=== PATIENT | female | born 1950 | race Caucasian/White ===

== ENCOUNTER 2022-09-30 14:35 | Outpatient (CLI) | payer MEDICARE, OTHER ==
--- NOTE | 2022-09-30 16:22 | CT Report ---
PROCEDURE: HEAD WO INDICATIONS: OTH SYMPTOMS AND SIGNS W COGNITIVE FUNCTIONS AND A TECHNIQUE: Noncontrast 4.5 mm thick angled axial sections acquired from the foramen magnum to the vertex. For r adiation dose reduction, the following was used: automated exposure control, adjustment of mA and/or kV according to patient size. COMPARISON: None. FINDINGS: Image quality: Excellent. CSF spaces: Basal cisterns are patent. No extra-axial fluid collections. Ventricles are normal in size and shape. Brain: Mild global cerebral volume loss and chronic microvascular ischemic change. No acute intracran ial hemorrhage. No evidence of infarct or edema. Skull and face: Calvarium and visualized facial bones are intact, without suspicious lesions. Sinuses: Visualized sinuses and mastoids are clear. IMPRESSION: Mild global cerebral volume loss and mild chronic microvascular ischemic change. Reviewed by: Willi Tran MD on 09/30/2022 4:21 PM PST Approved by: Willi Tran MD on 09/30/2022 4:21 PM PST Station ID: [id number]
--- NOTE | 2022-09-30 16:36 | XRAY Report ---
PROCEDURE: Finger(s) RT INDICATIONS: 3RD DIGIT RIGHT FINGER TECHNIQUE: AP hand, two views of the right 3rd finger(s) acquired. COMPARISON: None FINDINGS: Medial subluxation and angulation of the right 3rd proximal interphalangeal joint without definite ev idence of fracture. No associated soft tissue swelling. No suspicious bone lesion. IMPRESSION: Medial subluxation and angulation of the right 3rd proximal interphalangeal joint without associated fracture identified. Findings suggest ligamentous injury. Consider MRI. Reviewed by: Willi Tran MD on 09/30/2022 4:35 PM PST Approved by: Willi Tran MD on 09/30/2022 4:[address] [facility] Station ID: [id number]
== END 2022-09-30 14:36 | disposition home or self-care (01) ==
LOC: DI 14:35
PROVIDERS: ATTEND Internal Medicine
DX: R41.89 Other symptoms and signs involving cognitive functions and awareness (principal); I67.82 Cerebral ischemia; S63.22 Subluxation of unspecified interphalangeal joint of finger

== ENCOUNTER 2023-04-08 08:40 | Outpatient (CLI) | payer MEDICARE, OTHER ==
--- NOTE | 2023-04-08 09:22 | Sleep Patient Instructions ---
Sleep Center Visit Summary - Patient Visit Information Reason for Visit: Initial consult for evaluation of sleep disordered breathing and other sleep issues. - Patient Instructions Instructions Attached: Sleep Study, Sleep Clinic Visit Additional Instructions: You will be completing a sleep study, either an in-lab polysomnography (PSG) or home sleep study (HST). You will follow-up in the sleep care office after the sleep study is completed to hear the results and talk about therapy, if needed. You will be called by our office staff to schedule this appointment, but you may contact us with any questions. - Clinic Information Contact: [facility] [address] [place] [address] [email or web address] T: [phone]
--- NOTE | 2023-04-08 09:30 | SLEEP CARE CONSULTATION ---
Information from patient questionnaire entered by Letty Onofre. I have reviewed and concur with the information entered by Letty Onofre. This document represents the service I personally performed and the decisions made by me, Dariela Heath ARNP. History of Present Illness Service Date and Time: 04/08/2023 0840 Reason for Visit: New patient Accompanied by: Spouse (Surendra) Chief Complaint: reports: Unrefreshed sleep, Snoring, Observed pauses in breathing Date of Onset: 2-3 years, lack of good sleep Usual bedtime: 8-9 Time it takes to fall asleep: 10-15MIN Snores at night: Yes Observed to quit breathing while asleep: Yes Sleeps alone due to snoring: No Number of times waking at night: 1-2 Reasons for waking at night: reports: Bathroom. denies: Choking, Snoring, Gasping for air Toss, Turn, or Twitch while sleeping: No Recalls having dreams: Yes (not every night) Usually gets out of bed at: 6-7AM Feels refreshed in the morning: Yes Morning headache: Yes (2-3 times a week; gone as soon as starts moving around) Sleepy or fatigued during the day: Yes Ever fallen asleep while driving: No Takes day naps: Yes (daily after lunch for 1 hour) Dreams during day naps: No Prior sleep studies: No Additional HPI information: I had the pleasure of seeing ASHWIN NAILS today regarding the possibility of her having a sleep disorder. Her current complaints are observed pauses in breathing, snoring and unrefreshed sleep. She is accompanied by her . She was referred because of memory issues that they think might be related to poor sleep. Her states she snores and has had times when she stops breathing. She also has restless legs at night. She has been on medication for RLS for a long time. Currently she is taking just Mirapex. The other two medications, gabapentin and amitriptyline, are on hold right now. She states she can fall asleep easily within few minutes and sleep through the night with just 1-2 times up for the bathroom. She usually feels rested in the morning. She average 9.5 hours of sleep nightly. Her states she snores when on her side but not when sleeping on her stomach. She denies waking up gasping for air, choking or snoring. She did not think she naps but her interjected that they both usually take a nap for an hour after lunch most days. - Parasomnia Symptoms Ever been unable to move upon waking from sleep: No Walks in sleep: No Talks in sleep: No Ever acted out dreams in sleep: No Ever felt weak in the knees when startled or emotional: No Bothered by creepy, crawly, restless sensations in legs: Yes (has RLS, is not taking meds currently) Problems with memory or concentration: Yes (memory mostly) Subjective Initial [place] Sleepiness Scale score: 3 (04/02/23) Past Medical History Past Medical History: reports: Hypertension, Diabetes (Type 2 ), Other (RLS) Social History The patient's occupation is a RETIRED. Patient is and lives in [place]. Have you smoked in the past 12 months: No Alcohol use: No Caffeine use: Yes Caffeine amount and frequency: 1 cup in AM, some times 2 Family History Family history of sleep disordered breathing: No Allergies and Home Medications Known drug allergies: No Drug allergies reviewed: Yes Home medication list reviewed: Yes (see updated list in EMR; gabapentin and amitriptyline on hold) Review of Systems Weight loss over past 5 years: 50 Cardiovascular: reports: high blood pressure Respiratory: denies: shortness of breath Gastrointestinal: denies: heartburn Neurological: denies: headaches, head trauma Psychiatric: denies: anxiety, depression Ear/Nose/Throat: reports: wisdom teeth removed (one or two left). denies: injury to nose, tonsillectomy Endocrine: denies: thyroid disease Immunologic: denies: allergies to food or environment Physical Exam Vital signs obtained and entered by: LETTY Patel MA Blood Pressure: 126/72 (LEFT ARM) Cuff size: regular Heart Rate: 67 O2 Saturation: 98 Height: 5 ft 2 in Weight: 174 lb 9.6 oz Body Mass Index: 31.9 BMI Classification: Obese Neck circumference: 14.25 Mouth and throat: normal Soft palate: normal Hard palate: normal Uvula: long Uvula visualization: 50% Mallampati Class II Tongue: enlarged in size with teeth fernandez on lateral edges Tonsils: small Neck: normal w/o lymphadenopathy or thyromegaly Heart: irregular rhythm Lungs: clear bilaterally Impression and Plan 1. Suspected Obstructive Sleep Apnea-Hypopnea Syndrome, as suggested by a history of loud and irregular snoring, observed cessation of breath while asleep, morning headache and cognitive impairment. She is concerned that she might not be able to sleep in a strange bed. I offered and she accepted a one time dose of 5 mg Zolpidem for the night of study. She thinks she has had this before and had not adverse effects. Narrow oropharynx and obesity are common predisposing factors for obstructive sleep apnea-hypopnea syndrome. I recommend proceeding to polysomnography to confirm the diagnosis and to assess severity. If the patient has significant sleep disordered breathing, a manual CPAP titration study will also be performed to find the optimal treatment pressure. I informed the patient of what the sleep studies involve and after some discussion, obtained agreement to proceed. The pathophysiology of obstructive sleep apnea-hypopnea syndrome was discussed with the patient and health risks of cardiovascular and cerebrovascular disease if not treated. Risks of drowsy driving discussed in detail and patient advised to avoid long distance driving and to snout puller at the first sign of drowsiness. Patient agreed to plan. * Schedule polysomnography. * 5 mg Zolpidem for night of sleep study * Avoid long distance driving or driving when feeling sleepy. * Avoid alcohol, sedative and muscle relaxant around bedtime. * Attempt to lose weight. * Review instructions provided by trained office staff on how to prepare for the sleep study. * Return for follow-up after sleep study completed. Counseling Topics: Weight loss health impact Visit Type: In Office Time Spent with Patient (minutes): 35 Provider Statement: I spent 100% of the Face to Face Visit with the patient with greater than 50% spent counseling the patient and coordination of care.
[2023-04-08 09:42] VITALS: BP 126/72; O2SAT 98
== END 2023-04-08 08:41 | disposition home or self-care (01) ==
LOC: SC 08:40
PROVIDERS: ATTEND Nurse Practitioner Family
DX: R53.83 Other fatigue (principal); R51.9 Headache, unspecified; R06.83 Snoring; R06.81 Apnea, not elsewhere classified; E11.9 Type 2 diabetes mellitus without complications; I10 Essential (primary) hypertension; E66.9 Obesity, unspecified; Z68.31 Body mass index [BMI] 31.0-31.9, adult
CPT/HCPCS: 99203; G0463; 99212

== ENCOUNTER 2023-05-02 19:22 | Outpatient (CLI) | payer MEDICARE, OTHER | END 2023-05-02 19:23 | disposition home or self-care (01) | LOC: SC 19:22 | PROVIDERS: ATTEND Nurse Practitioner Family | DX: G47.33 Obstructive sleep apnea (adult) (pediatric) (principal); I48.91 Unspecified atrial fibrillation; G47.61 Periodic limb movement disorder; E66.9 Obesity, unspecified; Z68.31 Body mass index [BMI] 31.0-31.9, adult | CPT/HCPCS: 95810 ==

== ENCOUNTER 2023-05-08 08:53 | Outpatient (CLI) | payer MEDICARE, OTHER ==
--- NOTE | 2023-05-08 09:33 | Sleep Patient Instructions ---
Sleep Center Visit Summary - Patient Visit Information Reason for Visit: SLEEP STUDY FOLLOWUP - Patient Instructions Instructions Attached: CPAP Dc, CPAP Additional Instructions: You are being started on CPAP therapy with pressure setting at 4-15 cmH2O. You will need to call the sleep care office to set up your follow up once you have your APAP machine and we will schedule a visit to check compliance and response to therapy at that time. You may call the office with any concerns about pressure feeling too low or too much for adjustment, if needed. You should contact DME supplier for any questions or concerns about mask or equipment. Please call office to schedule a follow up appointment in the sleep care office one month after obtaining new device. - Clinic Information Contact: [facility] [address] [place] [address] [email or web address] T: [phone]
--- NOTE | 2023-05-08 09:38 | SLEEP CARE CONSULTATION ---
Information from patient questionnaire entered by Letty Onofre. I have reviewed and concur with the information entered by Letty Onofre. This document represents the service I personally performed and the decisions made by , Dariela Heath ARNP. History of Present Illness Service Date and Time: 05/08/2023 0853 Accompanied by: Spouse (Surendra) Initial [place] Sleepiness Scale score: 3 (04/02/23) Current [place] Sleepiness Scale score: 4 (05/08/23) Additional HPI information: ASHWIN NAILS returns for follow up and results of the recently performed polysomnography. Her sleep study showed moderate obstructive sleep apnea with an average AHI of 23.5 and marizol oxygen saturation of 83%. She had mild PLMs and was noted to have atrial fibrillation. I explained the pathophysiology behind obstructive sleep apnea. We then spent quite a bit of time discussing different treatment options. For mild obstructive sleep apnea, surgery and oral appliance are alternatives to nasal CPAP therapy but in moderate or severe cases, nasal CPAP is the most effective and reliable treatment. I reviewed the impact of weight changes on sleep apnea and strongly recommended losing weight. After some discussion, the patient opted to go with the nasal CPAP therapy. Nasal autoCPAP set at 4-15 cmH20 will be ordered with rationale explained. A manual titration study will be ordered if unable to find optimal pressure with office adjustments. I explained how CPAP machine works and what to expect when using the machine. Using CPAP every night in order to get used to it was emphasized. Patient advised to put CPAP mask on before getting into bed so as not to fall asleep without CPAP. To assist acclimation to CPAP use, it could also be used for a short time during day while reading or watching TV. The patient was instructed to call the CPAP supplier to discuss any mechanical problem that may occur. If the mask given is uncomfortable or is difficult to keep on through the night even with adjustment, contact the CPAP supplier as many will replace with another mask style if notified before 30 days. If snoring or perceives is not getting enough air or too much air from the machine, notify this office. Enio deborah does not drink alcohol. Patient was cautioned about risks of drowsy driving until sleepiness symptoms resolve. Patient denies drowsy driving. Sleep Study - Results Type of Sleep Study: Polysomnography (COMPLETED 05/02/23) Prior sleep studies: No Polysomnography/Home Sleep Study results: IMPRESSION: The quality of the study is good. The patient had slightly reduced sleep efficiency due to a few awakenings during the night. The sleep architecture was abnormal for sleep fragmentation and reduced amount of time spent in REM and slow wave sleep (N3). Respiratory monitoring showed moderate obstructive sleep apneahypopnea (AHI = 23.5) associated with frequent arousals, oxyhemoglobin desaturation and mild hypoxia (marizol oxygen saturation of 83%). The respiratory events occurred independently of sleep stage and body position (supine AHI = 16.5; non-supine = 30.40). Snore was moderate to loud in intensity. There was mild periodic leg movement of sleep not contributing to the sleep fragmentation. Cardiac rhythm was atrial fibrillation with frequent premature ventricular contractions. No abnormal behavior (parasomnia) observed during the night. Allergies and Home Medications Known drug allergies: No Drug allergies reviewed: Yes Home medication list reviewed: Yes (no changes) Allergy and home medication list: Allergies No Known Drug Allergies Allergy (Verified 05/07/23 09:07) Review of Systems Review of systems same as previous: Yes (no changes) Physical Exam Vital signs obtained and entered by: LETTY Patel MA Blood Pressure: 122/72 (RIGHT ARM) Cuff size: regular Heart Rate: 70 O2 Saturation: 97 Height: 5 ft 2 in Weight: 184 lb 3.2 oz Body Mass Index: 33.7 BMI Classification: Obese Impression and Plan 1. Obstructive Sleep Apnea-Hypopnea Syndrome, moderate, with lowest oxygen saturation of 83%. Obviously this is the cause of the patients symptoms of unrefreshed sleep, and excessive daytime sleepiness. Positive pressure therapy could benefit hypertension, diabetes and restless legs syndrome. As mentioned above, the patient will be started on nasal autoCPAP therapy with pressure set at 4-15 cmH2O. A manual titration study will be completed if unable to find optimal treatment pressure with office adjustments. Compliance guidelines also reviewed. A copy of compliance guidelines will be given for reference at check out. 2. Atrial fibrillation. Heart monitoring showed atrial fibrillation with fr equent PVCs during the PSG. Patient was advised to followup with her primary provider for further evaluation of this finding. She voiced understanding. 3. Hypoxemia, mild, with a marizol oxygen saturation of 83% and 93.2 minutes spent under 90%. Her baseline oxygen saturation was normal with an average oxygen saturation of 91%. The hypoxemia is probably due to her sleep apnea but sometimes it can be due to cardiovascular or respiratory issues. 4. Periodic limb movement, mild, that did not fragment patients sleep. Periodic limb movement of sleep (PLMS) is characterized by episodes of repetitive limb movements that occur during sleep and usually involve the lower limbs. The etiology is unknown. Caffeine can also aggravate PLMS and should be avoided. Sleep hygiene methods can also improve sleep as well as lifestyle changes such as regular exercise. Patient was advised that no treatment is needed at this time. If symptoms increase, then further evaluation is indicated. * Nasal auto CPAP therapy, pressure at 4-15 cm H2O. * Attempt to lose weight. * Avoid alcohol consumption near bedtime. * Avoid supine sleep until using CPAP. * The patient is again cautioned about driving until sleepiness completely resolves. * Return one month after CPAP obtained. I will assess response to therapy and compliance at that time. Counseling Topics: Weight loss health impact Prescriptions: Auto CPAP Visit Type: In Office Time Spent with Patient (minutes): 26 Provider Statement: I spent 100% of the Face to Face Visit with the patient with greater than 50% spent counseling the patient and coordination of care.
[2023-05-08 09:41] VITALS: BP 122/72; O2SAT 97
== END 2023-05-08 08:54 | disposition home or self-care (01) ==
LOC: SC 08:53
PROVIDERS: ATTEND Nurse Practitioner Family
DX: G47.33 Obstructive sleep apnea (adult) (pediatric) (principal); I48.91 Unspecified atrial fibrillation; I49.3 Ventricular premature depolarization; R09.02 Hypoxemia; G47.61 Periodic limb movement disorder; E66.9 Obesity, unspecified; Z68.33 Body mass index [BMI] 33.0-33.9, adult
CPT/HCPCS: 99213; G0463; 99212

== ENCOUNTER 2023-08-04 12:56 | Outpatient (CLI) | payer MEDICARE, OTHER ==
--- NOTE | 2023-08-04 13:20 | Sleep Patient Instructions ---
Sleep Center Visit Summary - Patient Visit Information Reason for Visit: First Compliance visit for PAP therapy - Patient Instructions Additional Instructions: You were here for follow up of CPAP therapy. You will be continued on CPAP therapy with pressure at 5-7 cmH2O. Please let us know if the pressure change is uncomfortable and we can make further adjustments of the pressure. You should follow up with sleep care in 1-2 months. You may contact us sooner for any questions or concerns. - Clinic Information Contact: [facility] [address] [place] [address] [email or web address] T: [phone]
--- NOTE | 2023-08-04 13:26 | SLEEP CARE CONSULTATION ---
Information from patient questionnaire entered by Letty Onofre. I have reviewed and concur with the information entered by Letty Onofre. This document represents the service I personally performed and the decisions made by , Dariela Heath ARNP. History of Present Illness Service Date and Time: 08/04/2023 1256 Previous diagnosis: Moderate, Obstructive Sleep Apnea-Hypopnea Syndrome AHI: 23.5 (04/2023) Reason for follow up: first compliance Accompanied by: Spouse Equipment type: CPAP (ALIS G3 w/modem) Equipment obtained from: Other ([facility]; got initial supplies) Mask style: Nasal Backup mask available: No (will keep old mask when replaced) Last cushion change: last week Prior sleep studies: No Type of Sleep Study: Polysomnography (COMPLETED 05/02/23) HPI additional information: ASHWIN NAILS was diagnosed to have moderate, AHI 23.5, obstructive sleep apnea- hypopnea syndrome and returned today for CPAP therapy first compliance follow- up. Sleep Study - Results Type of Sleep Study: Polysomnography (COMPLETED 05/02/23) Prior sleep studies: No CPAP Compliance Data - Data Reviewed with Patient Average duration of nightly device use: 3 HRS 45 MINS Compliance rate %: 43.3 (06/30/23-07/29/23; 30/30 days used) Current pressure setting (cmH2O): 4-15 (median 4.9, 95th 7.1) Average residual AHI: 1.7 Central apnea: 0.5 Obstructive apnea: 1.4 Average large leak: 1 minutes Subjective Patient concerns: denies: aerophagia, mask discomfort, air blowing in eyes, mask leak noise, condensation in mask/hose, nasal congestion, dry mouth, nose, throat, epistaxis Observed to snore while using device: No Current pressure setting perceived as: comfortable On therapy, patient: reports: sleeping better, awakening more refreshed, being more awake and alert during the day, more rested overall. denies: drowsiness while driving Initial [place] Sleepiness Scale score: 3 (04/02/23) Current [place] Sleepiness Scale score: 4 (08/04/23) Allergies and Home Medications Known drug allergies: No Drug allergies reviewed: Yes Home medication list reviewed: Yes (no changes) Allergy and home medication list: Allergies No Known Drug Allergies Allergy (Verified 08/03/23 09:13) Review of Systems Review of systems same as previous: Yes (NO CHANGE) Physical Exam Vital signs obtained and entered by: LETTY Patel MA Blood Pressure: 124/66 Cuff size: regular (right arm) Heart Rate: 99 O2 Saturation: 75 Height: 5 ft 2 in Weight: 174 lb 6.4 oz Body Mass Index: 31.8 BMI Classification: Obese Impression and Plan 1. Obstructive Sleep Apnea-Hypopnea Syndrome, moderate, with fair treatment compliance and good apnea control. On CPAP therapy, the patient has better sleep quality and is more rested overall. She says she has no problems with using the CPAP. I advised her that she is getting good control of her sleep apnea but she needs to keep the mask on for 4 hours or more. She voiced understanding and says she will try harder to keep the mask. The patients pressure will be changed to autoCPAP 5-7 cmH20 to reflect pressure being used. Patient advised to contact me if pressure change is uncomfortable so that it can be adjusted. She will need to bring her machine back in to make the pressure change on her device. She voiced understanding. Goals for apnea control discussed. Patient's apnea severity and rationale for treatment to reduce apnea, improve sleep quality and reduce cardiovascular and cerebrovascular events was reviewed. I also reviewed the benefit of consistent device use of CPAP for hypertension, arrhythmia, diabetes, and RLS. 2. Obesity, unspecified. Currently patients BMI is 31.8. Obesity increases the risk of apnea, CPAP pressure requirements and overall health risks especially cardiovascular and diabetes. Thus patient is advised to lose weight. * Change auto CPAP pressure to 5-7 cmH2O * Notify me if snoring with mask or feeling that the pressure is too much or too little * Attempt to lose weight * Call this office if any problems using CPAP * Return for follow up in 1-2 months, or sooner if concerns arise Adjust device pressure to (cmH2O): 5-7 cmH2O Counseling Topics: Spare mask, Weight loss health impact Visit Type: In Office Time Spent with Patient (minutes): 21 Provider Statement: I spent 100% of the Face to Face Visit with the patient with greater than 50% spent counseling the patient and coordination of care.
[2023-08-04 13:30] VITALS: BP 124/66; O2SAT 75
== END 2023-08-04 12:57 | disposition home or self-care (01) ==
LOC: SC 12:56
PROVIDERS: ATTEND Nurse Practitioner Family
DX: G47.33 Obstructive sleep apnea (adult) (pediatric) (principal); E66.9 Obesity, unspecified; Z68.31 Body mass index [BMI] 31.0-31.9, adult
CPT/HCPCS: 99213; G0463; 99212

== ENCOUNTER 2023-10-08 09:41 | Outpatient (CLI) | payer MEDICARE, OTHER ==
--- NOTE | 2023-10-08 10:08 | Sleep Patient Instructions ---
Sleep Center Visit Summary - Patient Visit Information Reason for Visit: 2 month follow up - Patient Instructions Additional Instructions: You were here for follow up of CPAP therapy. You will be continued on CPAP therapy with pressure at 5-9 cmH2O. Please let us know if the pressure change is uncomfortable and we can make further adjustments of the pressure. You should follow up with sleep care in 3 months. You may contact us sooner for any questions or concerns. - Clinic Information Contact: [facility] [address] [place] [id number] [email or web address] T: [phone]
--- NOTE | 2023-10-08 10:12 | SLEEP CARE CONSULTATION ---
Information from patient questionnaire entered by Letty Onofre. I have reviewed and concur with the information entered by Letty Onofre. This document represents the service I personally performed and the decisions made by me, Dariela Heath ARNP. History of Present Illness Service Date and Time: 10/08/2023 09 Previous diagnosis: Moderate, Obstructive Sleep Apnea-Hypopnea Syndrome AHI: 23.5 (on 05/02/2023) Reason for follow up: other (2 MONTH F/U) Accompanied by: Spouse (Surendra) Equipment type: CPAP (ALIS G3) Equipment obtained from: Other ([facility]; getting supplies as needed) Mask style: Nasal pillows Mask brand: Resmed (AirFit P10, small cushion) Backup mask available: No (will keep old mask when replaced) Last cushion change: few weeks Prior sleep studies: No Type of Sleep Study: Polysomnography (COMPLETED 05/02/23) HPI additional information: ASHWIN NAILS was diagnosed to have moderate, AHI 23.5, obstructive sleep apnea- hypopnea syndrome and returned today for CPAP therapy 2 month follow-up. Sleep Study - Results Type of Sleep Study: Polysomnography (COMPLETED 05/02/23) Prior sleep studies: No CPAP Compliance Data - Data Reviewed with Patient Average duration of nightly device use: 4 hours 35 minutes Compliance rate %: 63.3 (60/60 days used; best 30, 76.6%) Current pressure setting (cmH2O): 5-7 Average residual AHI: 7 Central apnea: 0.3 Obstructive apnea: 6.2 Average large leak: 8.1 L/min Subjective Patient concerns: reports: dry mouth, nose, throat (dry mouth). denies: aerophagia, mask discomfort, air blowing in eyes, mask leak noise, condensation in mask/hose, nasal congestion, epistaxis Observed to snore while using device: No Current pressure setting perceived as: comfortable On therapy, patient: reports: sleeping better, awakening more refreshed, being more awake and alert during the day, more rested overall. denies: drowsiness while driving Initial Elsie Sleepiness Scale score: 3 (04/02/23) Current Elsie Sleepiness Scale score: 4 Allergies and Home Medications Known drug allergies: No Drug allergies reviewed: Yes Home medication list reviewed: Yes (no changes) Allergy and home medication list: Allergies No Known Drug Allergies Allergy (Verified 10/06/23 15:28) Review of Systems Review of systems same as previous: Yes (no changes) Physical Exam Vital signs obtained and entered by: DARIELA CAO Blood Pressure: 131/66 Cuff size: regular (right arm) Heart Rate: 62 O2 Saturation: 100 Height: 5 ft 2 in Weight: 179 lb 3.2 oz Body Mass Index: 32.8 BMI Classification: Obese Impression and Plan 1. Obstructive Sleep Apnea-Hypopnea Syndrome, moderate, with good treatment compliance and fair apnea control with mildly elevated residual AHI. On CPAP therapy, the patient has better sleep quality and is more rested overall. Patient states she really hates the CPAP because she does not like things on her face. She states she intends to continue using the CPAP as directed. I encouraged her to increase her time in the mask since her average is 4 and half hours nightly. She voiced understanding and agreement. The patients pressure will be changed to autoCPAP 5-9 cmH20 for mild elevation of residual AHI. Patient advised to contact me if pressure change is uncomfortable so that it can be adjusted. Goals for apnea control discussed. Patient's apnea severity and rationale for treatment to reduce apnea, improve sleep quality and reduce cardiovascular and cerebrovascular events was reviewed. I also reviewed the benefit of consistent device use of CPAP for hypertension, arrhythmia, diabetes and RLS. 2. Obesity, unspecified. Currently patients BMI is 32.8. Obesity increases the risk of apnea, CPAP pressure requirements and overall health risks especially cardiovascular and diabetes. Thus patient is advised to lose weight. * Change auto CPAP pressure to 5-9 cmH2O * Notify me if snoring with mask or feeling that the pressure is too much or too little * Attempt to lose weight * Call this office if any problems using CPAP * Return for follow up in 3 months, or sooner if concerns arise Adjust device pressure to (cmH2O): 5-9 Counseling Topics: Spare mask, Weight loss health impact Follow up with Sleep Care in: 3 months Visit Type: In Office Time Spent with Patient (minutes): 22 Provider Statement: I spent 100% of the Face to Face Visit with the patient with greater than 50% spent counseling the patient and coordination of care.
[2023-10-08 10:14] VITALS: BP 131/66; O2SAT 100
== END 2023-10-08 09:42 | disposition home or self-care (01) ==
LOC: SC 09:41
PROVIDERS: ATTEND Nurse Practitioner Family
DX: G47.33 Obstructive sleep apnea (adult) (pediatric) (principal); E66.9 Obesity, unspecified; Z68.32 Body mass index [BMI] 32.0-32.9, adult
CPT/HCPCS: 99213; G0463; 99212

== ENCOUNTER 2024-01-06 09:40 | Outpatient (CLI) | payer MEDICARE, OTHER ==
--- NOTE | 2024-01-06 10:23 | Sleep Patient Instructions ---
Sleep Center Visit Summary - Patient Visit Information Reason for Visit: 3-month follow-up - Patient Instructions Additional Instructions: You were here for follow up of CPAP therapy. You will be continued on CPAP therapy with pressure at 5-7 cmH2O. Please let us know if the pressure change is uncomfortable and we can make further adjustments of the pressure. You will be completing a titration sleep study in our sleep lab where you will be sleeping with the CPAP machine on and we will be adjusting your pressures to find your optimal pressure settings. Once we have your results back, we will call you and schedule a follow up to go over the results, you may contact us with any questions or issues as needed. You may contact us sooner for any questions or concerns. - Clinic Information Contact: [facility] [address] [place] [address] [email or web address] T: [phone]
--- NOTE | 2024-01-06 10:25 | SLEEP CARE CONSULTATION ---
Information from patient questionnaire entered by Letty Onofre. I have reviewed and concur with the information entered by Letty Onofre. This document represents the service I personally performed and the decisions made by me, Dariela Heath ARNP. History of Present Illness Service Date and Time: 01/06/2024 0940 Previous diagnosis: Moderate, Obstructive Sleep Apnea-Hypopnea Syndrome AHI: 23.5 (on 05/02/2023) Reason for follow up: three month (F/U) Accompanied by: Spouse (Surendra) Equipment type: CPAP (ALIS G3) Equipment obtained from: Other ([facility]; getting supplies as needed) Mask style: Nasal pillows Mask brand: Resmed (AirFit P10) Backup mask available: Yes Last cushion change: 2-3 weeks Prior sleep studies: No Type of Sleep Study: Polysomnography (COMPLETED 05/02/23) HPI additional information: ASHWIN NAILS was diagnosed to have moderate, AHI 23.5, obstructive sleep apnea- hypopnea syndrome and returned today for CPAP therapy three month follow-up. Sleep Study - Results Type of Sleep Study: Polysomnography (COMPLETED 05/02/23) Prior sleep studies: No CPAP Compliance Data - Data Reviewed with Patient Average duration of nightly device use: 2 HRS 54 MINS Compliance rate %: 28.9 (10/04/23-01/01/24; 80/90 days used) Current pressure setting (cmH2O): 5-9 Average residual AHI: 11.3 Central apnea: 0.4 Obstructive apnea: 10.2 Average large leak: 8.3 L/min Subjective Patient concerns: reports: dry mouth, nose, throat (dry mouth, occasionally). denies: aerophagia, mask discomfort, air blowing in eyes, mask leak noise, condensation in mask/hose, nasal congestion, epistaxis Observed to snore while using device: No Current pressure setting perceived as: comfortable On therapy, patient: reports: awakening more refreshed, being more awake and alert during the day, more rested overall. denies: drowsiness while driving Initial [place] Sleepiness Scale score: 3 (04/02/23) Current [place] Sleepiness Scale score: 3 (01/06/24) Allergies and Home Medications Known drug allergies: No Drug allergies reviewed: Yes Home medication list reviewed: Yes (no changes) Allergy and home medication list: Allergies No Known Drug Allergies Allergy Review of Systems Review of systems same as previous: Yes (NO CHANGE) Physical Exam Vital signs obtained and entered by: LETTY Patel MA Blood Pressure: 136/67 (RIGHT ARM) Cuff size: regular Heart Rate: 71 O2 Saturation: 100 Height: 5 ft 2 in Weight: 175 lb 12.8 oz Body Mass Index: 32.1 BMI Classification: Obese Impression and Plan 1. Obstructive Sleep Apnea-Hypopnea Syndrome, moderate, with fair treatment compliance and fair apnea control with elevated residual AHI. On CPAP therapy, the patient has better sleep quality and is more rested overall. The patients pressure will be changed to autoCPAP 5-7 cmH20 for elevation of residual AHI. Patient advised to contact me if pressure change is uncomfortable so that it can be adjusted. Goals for apnea control discussed. Patient's pressure setting is still not optimal to control sleep apnea. I advised patient that a titration study will be next step to determine a more optimal pressure setting. They voiced understanding and agreement. Patient's apnea severity and rationale for treatment to reduce apnea, improve sleep quality and reduce cardiovascular and cerebrovascular events was reviewed. I also reviewed the benefit of consistent device use of CPAP for hypertension, arrhythmia, diabetes, RLS. 2. Obesity, unspecified. Currently patients BMI is 32.1. Obesity increases the risk of apnea, CPAP pressure requirements and overall health risks especially cardiovascular and diabetes. Thus patient is advised to lose weight. * Change auto CPAP pressure to 5-7 cmH2O * Titration study * Notify me if snoring with mask or feeling that the pressure is too much or too little * Attempt to lose weight * Call this office if any problems using CPAP * Return for follow up after titration study, or sooner if concerns arise Adjust device pressure to (cmH2O): 5-7 Counseling Topics: Spare mask, Weight loss health impact Plan: Titration study and follow up Visit Type: In Office Time Spent with Patient (minutes): 20 Provider Statement: I spent 100% of the Face to Face Visit with the patient with greater than 50% spent counseling the patient and coordination of care.
[2024-01-06 10:27] VITALS: BP 136/67; O2SAT 100
== END 2024-01-06 09:41 | disposition home or self-care (01) ==
LOC: SC 09:40
PROVIDERS: ATTEND Nurse Practitioner Family
DX: G47.33 Obstructive sleep apnea (adult) (pediatric) (principal); E66.9 Obesity, unspecified; Z68.32 Body mass index [BMI] 32.0-32.9, adult
CPT/HCPCS: 99213; G0463; 99212

== ENCOUNTER 2024-03-04 19:28 | Outpatient (CLI) | payer MEDICARE, OTHER | END 2024-03-04 19:29 | disposition home or self-care (01) | LOC: SC 19:28 | PROVIDERS: ATTEND Nurse Practitioner Family | DX: G47.33 Obstructive sleep apnea (adult) (pediatric) (principal); G47.61 Periodic limb movement disorder | CPT/HCPCS: 95811 ==

== ENCOUNTER 2024-05-05 08:23 | Outpatient (CLI) | payer MEDICARE, OTHER ==
--- NOTE | 2024-05-05 13:59 | DEXA Report ---
PROCEDURE: Dexa Spine and/or Hip INDICATIONS: POST MENOPAUSAL TECHNIQUE: Dual energy x-ray absorptiometry (DXA) was performed on a [employer] System. Regions measur ed are the AP Spine, femoral neck, and if needed forearm. COMPARISON: None FINDINGS: Lumbar Spine: Bone Mineral Density: 1.087 g/cm/cm,T score: -0.8. Left Femoral Neck: Bone Mineral Density: 0.784 g/cm/cm, T score: -1.8. Left Hip: Bone Mineral Density: 0.932 g/cm/cm,T score: -0.6. FRAX risk factors: None given. 10 year risk of major osteoporotic fracture: 12.1% major osteoporotic fracture = hip, clinical vertebral, proximal humerus, distal forearm 10 year risk of hip fracture: 2.8% (T score greater or equal to -1.0: NORMAL) (T score from -1.1 to -2.4: OSTEOPENIA) (T score less than or equal to -2.5 to: OSTEOPOROSIS) Impression: By WHO criteria, this patient has mild to moderate osteopenia in the left femoral neck. Patients with diagnosis of osteoporosis or osteopenia should have regular bone mineral density assess ment. For those eligible for Medicare, routine testing is allowed once every 2 years. Testing frequ ency can be increased for patients who have rapidly progressing disease or for those who are receivin g medical therapy to restore bone mass. Reviewed by: Kristi Randle MD on 05/05/2024 1:57 PM PDT Approved by: Kristi Randle MD on 05/05/2024 1:57 PM PDT Station ID: [id number]
== END 2024-05-05 08:24 | disposition home or self-care (01) ==
LOC: DI 08:23
DX: M85.88 Other specified disorders of bone density and structure, other site (principal)

== ENCOUNTER 2024-05-12 15:26 | Outpatient (CLI) | payer MEDICARE, OTHER ==
--- NOTE | 2024-05-12 15:45 | Sleep Patient Instructions ---
Sleep Center Visit Summary - Patient Visit Information Reason for Visit: Titration study follow-up - Patient Instructions Additional Instructions: You were here for follow up of CPAP titration study. You will be continued on CPAP therapy with pressure at 6 cmH2O. Please let us know if the pressure change is uncomfortable and we can make further adjustments of the pressure. You should follow up with sleep care in 1-2 months. You may contact us sooner for any questions or concerns. - Clinic Information Contact: [facility] [address] [place] [id number] [email or web address] T: [phone]
--- NOTE | 2024-05-12 15:54 | SLEEP CARE CONSULTATION ---
Information from patient questionnaire entered by Ehsan Onofre. I have reviewed and concur with the information entered by Ehsan Onofre. This document represents the service I personally performed and the decisions made by , Dariela Heath ARNP. History of Present Illness Service Date and Time: 05/12/2024 1526 Initial [place] Sleepiness Scale score: 3 (04/02/23) Current [place] Sleepiness Scale score: 2 (05/12/24) Additional HPI information: ASHWIN NAILS returns for follow up of a manual CPAP titration study performed on 03/04/2024. Previous study done on 05/02/23 showed moderate obstructive sleep apnea with AHI 23.5. The patient was informed of the following polysomnography findings: CPAP was initiated at 5 cmH2O and titrated up to CPAP at 7cmH2O. CPAP at 6 cmH2O appeared to be optimal (AHI of 0 per hour on the pressure). There was supine sleep on the pressure. Oxygen saturation was normal throughout the night. Lower CPAP settings appeared adequate as well. The patient appeared to have tolerated positive airway pressure therapy fairly well. There was severe periodic leg movement of sleep contributing to the sleep fragmentation. She is to continue on her CPAP with the pressure at 6 cmH2O. Sleep Study - Results Type of Sleep Study: Polysomnography (COMPLETED 05/02/23 TITRATION STUDY COMPLETED 03/04/24) Prior sleep studies: No Polysomnography/Home Sleep Study results: IMPRESSION: The quality of the study is good. CPAP was initiated at 5 cmH2O and titrated up to CPAP at 7 cmH2O. CPAP at 6 cmH2O appeared to be optimal (AHI of 0 per hour on the pressure). There was supine sleep on the pressure. Oxygen saturation was normal throughout the night. Lower CPAP settings appeared adequate as well. The patient appeared to have tolerated positive airway pressure therapy fairly well. The patients sleep efficiency was reduced due to sleep onset insomnia. The sleep architecture was abnormal for sleep fragmentation and reduced amount of time spent in slow wave sleep (N3). There was severe periodic leg movement of sleep contributing to the sleep fragmentation. Cardiac rhythm was normal sinus rhythm without significant arrhythmia. No abnormal behavior (parasomnia) observed during the night. Allergies and Home Medications Known drug allergies: No Drug allergies reviewed: Yes Home medication list reviewed: Yes (no changes) Allergy and home medication list: Allergies No Known Drug Allergies Allergy (Verified 05/12/24 15:28) Review of Systems Review of systems same as previous: Yes (NO CHANGE) Physical Exam Vital signs obtained and entered by: EHSAN Patel MA Blood Pressure: 157/79 (RIGHT ARM) Cuff size: regular Heart Rate: 83 O2 Saturation: 79 Height: 5 ft 2 in Weight: 178 lb 12.8 oz Body Mass Index: 32.7 BMI Classification: Obese Impression and Plan 1. Obstructive Sleep Apnea-Hypopnea Syndrome, moderate. Patient returns after titration study to find optimal pressure. Her optimal pressure was noted to be 6 cm H2O. The patient will be continued on nasal autoCPAP therapy with pressure set at 6 cmH2O. Patient's apnea severity and rationale for treatment to reduce apnea, improve sleep quality and reduce cardiovascular and cerebrovascular events was reviewed. I also reviewed the benefit of consistent device use of CPAP for hypertension, arrhythmia, diabetes, RLS. I will have her follow-up in 1 to 2 months just to make sure everything is going well with that pressure change. She states she does not always use her CPAP and I encouraged her again to use it every night, to get used to using it all the time. She voiced understanding and agreement with plan. 2. Periodic limb movement, severe, that did contribute to sleep fragmentation. Periodic limb movement of sleep (PLMS) is characterized by episodes of repetitive limb movements that occur during sleep and usually involve the lower limbs. The etiology is unknown. Patient was advised that no treatment is needed at this time. If symptoms increase, then further evaluation is indicated. 3. Obesity, unspecified. Currently patients BMI is 32.7. Obesity increases the risk of apnea, CPAP pressure requirements and overall health risks especially cardiovascular and diabetes. Thus patient is advised to lose weight. * Change CPAP pressure to 6 cmH2O * Notify me if snoring with mask or feeling that the pressure is too much or too little * Attempt to lose weight * Call this office if any problems using CPAP * Return for follow up in 1-2 months, or sooner if concerns arise Adjust device pressure to (cmH2O): 6 Counseling Topics: Weight loss health impact Follow up with Sleep Care in: 1-2 months Visit Type: In Office Time Spent with Patient (minutes): 20 Provider Statement: I spent 100% of the Face to Face Visit with the patient with greater than 50% spent counseling the patient and coordination of care.
[2024-05-12 16:00] VITALS: BP 157/79; O2SAT 79
== END 2024-05-12 15:27 | disposition home or self-care (01) ==
LOC: SC 15:26
PROVIDERS: ATTEND Nurse Practitioner Family
DX: G47.33 Obstructive sleep apnea (adult) (pediatric) (principal); G47.61 Periodic limb movement disorder; E66.9 Obesity, unspecified; Z68.32 Body mass index [BMI] 32.0-32.9, adult
CPT/HCPCS: 99213; G0463; 99212